=== PATIENT | male | born 2005 | race Caucasian/White ===

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

== ENCOUNTER 2024-02-14 09:27 | Emergency (ER) | payer BC, SELFPAY ==
[2024-02-14 09:38] VITALS: BP 103/59; PULSE 80; RESP 18; TEMP 37.1; O2SAT 100
--- NOTE | 2024-02-14 10:20 | ED.EYEPROB ---
HPI - Eye Problem General Chief complaint: Eye Problems Stated complaint: eyes Time Seen by Provider: 02/14/24 09:57 Source: patient, RN notes reviewed and old records reviewed Mode of arrival: ambulatory Limitations: no limitations History of Present Illness HPI Narrative: 18-year-old male to Express Care for complaint of itchy, swollen right eyelid that was present upon awakening today. Patient endorses that left eyelid presented this way yesterday and resolved by bedtime. Patient reports that he has been outside a lot over the past week camping, fishing. Patient states he has never had a reaction to poison jamal, poison sumac, poison oak. Patient denies visual changes, recent illness, rash, exposure to new environmental irritants. Related Data Allergies Allergy/AdvReac Type Severity Reaction Status Date / Time No Known Allergies Allergy Unknown Verified 02/14/24 09:45 Review of Systems Review of Systems: All systems reviewed & are unremarkable except as noted in HPI and below Constitutional: Constitutional: Reports no additional constitutional complaints Eyes: Eyes: Reports as per HPI, Denies change in vision, Denies eye discharge, Reports irritation ( Right upper eyelid), Denies eye pain and Denies photophobia ENT: Reports system reviewed and no additional complaints, except as documented Cardiovascular: Cardiovascular: Reports no additional cardiovascular complaints, Denies chest pain and Denies dyspnea Respiratory: Respiratory: Reports no additional respiratory complaints, Denies cough and Denies dyspnea Musculoskeletal: Musculoskeletal: Reports no additional musculoskeletal complaints Neurologic: Reports system reviewed and no additional complaints, except as documented Psychiatric: Psychiatric: Reports no additional psychiatric complaints PMFSH Past Medical History Medical History Left wrist fracture Surgical History Surgical History No pertinent past surgical history Family History Family History Mother No pertinent past medical history Social History Social History Smoking status: Current every day smoker Alcohol intake: never Substance use: current Substance use type: marijuana Living arrangements: with family Gender identity (if verbalized by the patient): Male Comments At the time of my signature, I reviewed and agree with the nursing past medical, surgical, social, and family history. There is no relevant family history pertinent to the patient complaint. Exam Const: General: cooperative, healthy appearing, comfortable, no acute distress, alert and well nourished Nutritional Appearance: well nourished Orientation/consciousness: patient oriented x3 Limitations: no limitations HENMT: Head: normal to inspection Ears: external ears normal Face/Nose/Sinus: Normal external nose present, Normal nares present, normal facial exam, No erythema and No edema Face and sinus: normal facial exam, no erythema and no edema Mouth: Yes Normal oral and palatal mucosa present Eyes: Visual Hernandez: normal visual hernandez by confrontation Alignment and Position: alignment normal and position normal Eyelids: eyelid abnormality left upper eyelid erythema, swelling and tenderness Conjunctivae: conjunctival abnormality bilateral conjunctival injection diffuse; without discharge Sclera: sclerae normal Pupils: Equal, round and reactive pupils present Neck: Neck: normal visual inspection, full ROM and no meningeal signs Lymphatic: no lymphadenopathy noted and no lymphedema noted Chest: Chest palpation & inspection: normal inspection of the chest Resp: Effort & Inspection: normal respiratory effort and able to speak in complete sentences Auscultation: clear to
== END 2024-02-14 10:35 | disposition home or self-care (01) ==
PROVIDERS: Emergency Provider Nurse Practitioner Family; PCP Physician Assistant
DX: L03.213 Periorbital cellulitis (principal); F17.200 Nicotine dependence, unspecified, uncomplicated; F12.90 Cannabis use, unspecified, uncomplicated
CPT/HCPCS: 99213; G0463

== ENCOUNTER 2024-08-25 12:35 | Emergency (ER) | payer BC, SELFPAY ==
[2024-08-25 12:40] VITALS: BP 116/60; PULSE 88; RESP 16; TEMP 37; O2SAT 100
--- NOTE | 2024-08-25 13:07 | ED_ITS ---
HPI - URI/Sore Throat General Chief Complaint: Upper Respiratory Infection Stated Complaint: Sore Throat/Cough History of Present Illness HPI Narrative: Patient presents with a cough and sore throat for the past 3 days. No shortness of breath no chest pain no fever no body aches. Patient has not taking thing [id number] for his symptoms. Related Data Allergies Allergy/AdvReac Type Severity Reaction Status Date / Time No Known Allergies Allergy Unknown Verified 02/14/24 09:45 Review of Systems Review of Systems: CONSTITUTIONAL: Denies chills, or sweats. Reports fever and generalized body aches EYES: Denies visual changes, redness, or discharge. ENT: Denies otalgia. Reports nasal congestion runny nose and sore throat CARDIOVASCULAR: Denies chest pain, palpitations, or edema. RESPIRATORY: Denies dyspnea. Reports occasional cough GASTROINTESTINAL: Denies abdominal pain, nausea, vomiting, or diarrhea. GENITOURINARY: Denies dysuria or hematuria. SKIN: Denies rash or itching. MUSCULOSKELETAL: Denies back pain, joint pain, or myalgia. Reports generalized body aches NEUROLOGIC: Denies headache, numbness, or weakness. PSYCHIATRIC: Denies anxiety or depression. [facility] Past Medical History Medical History Left wrist fracture Surgical History Surgical History No pertinent past surgical history Family History Family History Mother No pertinent past medical history Social History Social History Smoking status: Current every day smoker Alcohol intake: never Substance use: current Substance use type: marijuana Living arrangements: with family Gender identity (if verbalized by the patient): Male Comments At time of signature, agree with nursing past medical, surgical, social and family history. There is no relevant family history pertinent to the presenting complaint Exam Narrative: The patient is a well-developed, well-nourished in no acute distress. SKIN: Skin is warm and dry without erythema, swelling or exudate. There is good turgor. No tenting. HEAD: Atraumatic. Normocephalic. No temporal or scalp tenderness. EYES: Moist and bright. Sclera and conjunctivae normal. No discharge. PERRLA. Extraocular motions intact. Gross visual acuity intact. EARS: Pinna is normal shape and contour. Clear external auditory canals. TM pearly hogan with good cone of light, no erythema or suppuration. Bilateral cerumen noted no gross hearing deficit. NOSE: pink, moist mucosa with good air movement. Clear rhinorrhea without nasal flaring. Septum midline. Mouth: moist mucous membranes. THROAT; mild erythema noted to posterior oropharynx with moderate postnasal drainage. Without exudate or ulceration.. Uvula midline. Normal movement of soft palate. NECK: Supple and nontender with full range of motion without discomfort. No meningeal signs. LUNGS: Equal and bilateral breath sounds without wheezes, rales or rhonchi. CHEST: The chest wall is without retractions or use of accessory muscles. HEART: Has a regular rate and rhythm without murmur, gallops, click or rub. ABDOMEN: Soft, nontender with positive active bowel sounds. No rebound tenderness. EXTREMITIES: Without cyanosis, clubbing or edema. Equal 2+ distal pulses and 2 second capillary refill noted. NEUROLOGIC: alert, active, . The patient moves all extremities with normal muscle strength. Normal muscle tone is noted. Normal coordination is noted. NO focal neurological findings noted. Course Course Level of Care: Express Care Visit Vital Signs Vital signs: Vital Signs Temperature 37.0 C 08/25/24 12:40 Pulse Rate 88 08/25/24 12:40 Respiratory Rate 16 08/25/24 12:40 Blood Pressure 116/60 08/25/24 12:40 Pulse Oximetry 100 08/25/24 12:40 Oxygen Delivery Room Air 08/25/24 12:40 Temperature 37.0 C 08/25/24 12:40 Pulse Rate 88 08/25/24 12:40 Respiratory Rate 16 08/25/24 12:40 Blood Pressure 116/60 08/25/24 12:40 Pulse Oximetry 100 08/25/24 12:40 Oxygen Delivery Room Air 08/25/24 12:40 Discharge Plan Discharge Clinical Impression: Pharyngitis Patient Disposition: Home, Self-Care Condition: Stable Instructions: Antibiotic Form, Cold Symptoms (ED) Additional Instructions: Bronchitis discharge bronchitis Increase fluids and rest 1. Bronchitis will generally resolve on it's own and may take a few weeks. Bronchitis is usually caused by a virus, but sometimes it may be bacterial. Antibiotics generally do not help bronchitis go away faster. Yellow or green mucous, does not always mean bacterial. If you are prescribed an antibiotic for your symptoms be sure to take the entire course of antibioitics. Take with food. It is also suggested to take with yogurt or a probiotic to decrease GI side effects. You may also be prescribed a steroid, if so, be sure to take entire course, first thing in the morning with food. 2. Rest and drink lots of fluids. Maintain a good diet, with foods rich in vitamins and minerals, and lots of fruits and vegetables. 3. Drinking hot tea, warm tea with honey, sucking on cough drops or hard candy, throat lozenges may help with sore throat. 4. OTC cough and cold medications are okay to take for your symptoms, including Mucinex expectorant. 5. If you have high BP, Coricidin HBP is behind the counter , you may ask your pharmacist for this. Otherwise, avoid medications that have a D at the end or a decongestant in them. These medications may increase your BP. 6. Breathing in warm, moist air, such as in the shower or a humidifier at your bedside or in your home. 7. Avoid smoking or being around those who smoke. 8. Protect yourself and others, cover your mouth when you cough and sneeze, and always wash your hands to prevent the spread of germs, if you are unable to, use hand school library media program director. . . Prescriptions: New albuterol sulfate 90 mcg/actuation HFA aerosol inhaler 2 puff inhalation QID PRN (Reason: shortness of breath or wheezing) Qty: 8.5 0RF azithromycin [Zithromax Z-Davie] 250 mg tablet See Rx Instructions .ROUTE .COMPLEX Qty: 6 0RF Rx Instructions: take 500 mg today (day 1), then 250 mg for 4 days (days 2-5) Zyrtec 10 mg capsule 10 mg PO DAILY 14 Days Qty: 14 0RF Follow-up/Referrals: Brandy,PREETHI Corral [Primary Care Provider] - Stand Alone Forms: Work/School Release IP
[2024-08-25 13:12] LABS: EDSTREPNEGPOS1 Negative (Negative)
== END 2024-08-25 13:16 | disposition home or self-care (01) ==
PROVIDERS: Emergency Provider Nurse Practitioner Family; PCP Physician Assistant
DX: J02.9 Acute pharyngitis, unspecified (principal); F17.200 Nicotine dependence, unspecified, uncomplicated; F12.90 Cannabis use, unspecified, uncomplicated
CPT/HCPCS: 87081; 87880; 99213; G0463

== ENCOUNTER 2024-12-05 15:32 | Emergency (ER) | payer BC, SELFPAY ==
--- NOTE | ~2024-12-05 | XR_ITS ---
XR chest 2V Ordering provider: Kota Felder MD History: 19 years Male with . Cough . Comparison: None. FINDINGS: MEDIASTINUM: The cardiac silhouette is not enlarged. LUNGS: No infiltrates, effusions or pneumothorax. OTHER: No free air under the diaphragm. IMPRESSION: No acute cardiopulmonary pathology. Reviewed, dictated and finalized at location A. Y OPERATOR
[2024-12-05 15:37] VITALS: BP 126/74; PULSE 101; RESP 18; TEMP 36.6; O2SAT 100
[2024-12-05 16:30] VITALS: PULSE 84; RESP 16
[2024-12-05] MEDS: IPRATROPIUM 0.5 MG/ALBUTEROL SULFATE 2.5 MG AMPUL.NEB 3 ML INHALATION (16:30)
[2024-12-05 16:43] VITALS: PULSE 84; RESP 16
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
--- OUTSIDE RECORDS SUMMARY | 2024-12-05 17:12 | XMS_ITS | Clinical Summary ---
Author Organization [facility] Address [address] [place] [address] Phone Care Team Providers Care Business Analytics Specialist Name Role Phone Esau Nava Primary Care Provider Allergies No known active allergies Medications No known medications Social History Tobacco Use Types Packs/Day Years Used Date Smoking Tobacco: Never Smokeless Tobacco: Never Tobacco Cessation:Counseling Given: Not Answered Alcohol Use Standard Drinks/Week Comments Never 0 (1 standard drink = 0.6 oz pur e alcohol) Sexually Active Control Partners Comments Never Sex and Gender Information Value Date Recorded Sex Assigned at Not on file Legal Sex Male 9:05 PM CDT Gender Identity Not on file Sexual Orientation Not on file Last Filed Vital Signs Vital Sign Reading Time Taken Comments Blood Pressure 122/54 06/30/2024 8:01 PM CDT Pulse 74 06/30/2024 8:01 PM CDT Temperature 37.2 C (98.9 F) 06/30/2024 8:01 PM CDT Respiratory Rate 18 06/30/2024 8:01 PM CDT Oxygen Saturation 99% 06/30/2024 8:01 PM CDT Inhaled Oxygen Concentration - - Weight 54.4 kg (120 lb) 06/30/2024 8:01 PM CDT Height 172.7 cm (5' 8 ) 06/30/2024 8:01 PM CDT Body Mass Index 18.25 06/30/2024 8:01 PM CDT Plan of Treatment Health Maintenance Due Date Last Done Comments Hepatitis C Virus (HCV) Screening 2004 Human Papillomavirus (HPV) Immunization (1 - Male 3-dose series) 2019 Meningococcal B Immunization (1 of 2 - Standard) 2020 Hepatitis B Immunization (1 of 3 - 19+ 3-dose series) 2023 Influenza Immunization (#1) 2024 SARS-COV-2 Immunization (1 - 2023- season) 2024 Respiratory Syncytial Virus (RSV) Immunization (Adult) (1 - 1-dose 75+ series) 2079 Meningococcal Immunization (ACWY) Aged Out 016 No longer eligible based on patient's age to complete this topic TdaP Immunization Completed 07/06/2017 Pneumococcal Immunization Combined Aged Out No longer eligible based on patient's age to complete this topic Rotavirus Immunization Aged Out No lo nger eligible based on patient's age to complete this topic Care Teams Business Analytics Specialist Relationship Specialty Start Date End Date Esau Nava PAC [address] [place] [address] PCP - General Physician Manager Landscape 06/30/24
--- OUTSIDE RECORDS SUMMARY | 2024-12-05 17:44 | XMS_ITS | Clinical Summary ---
Author Organization [facility] Address [address] [place] [address] Phone Care Team Providers Care Offc Spec Name Role Phone Esau Nava Primary Care Provider [phone] Allergies No known active allergies Medications No [...] age to complete this topic Care Teams Offc Spec Relationship Specialty Start Date End Date Esau Nava PAC [address] [place] [address] PCP - General Physician Dip Tanker 06/30/24
--- NOTE | 2024-12-05 18:56 | ED_ITS ---
HPI - General Adult General Chief complaint: Upper Respiratory Infection Stated complaint: Cough,congestion, Shortness of breath Time Seen by Provider: 12/05/24 15:57 History of Present Illness HPI narrative: After patient is a 19-year-old male who presents ER with shortness of breath and cough. He has been symptomatic with cough over last week and half. He is exposed to COVID positive family. No chest pain. Has been using inhaler with only mild improvement. Frequent coughing. Related Data Allergies Allergy/AdvReac Type Severity Reaction Status Date / Time No Known Allergies Allergy Unknown Verified 12/05/24 15:34 Review of Systems Review of Systems: All systems reviewed & are unremarkable except as noted in HPI and below Constitutional: Constitutional: Reports no additional constitutional complaints ENT: Reports system reviewed and no additional complaints, except as documented Cardiovascular: Cardiovascular: Reports no additional cardiovascular complaints Respiratory: Respiratory: Reports no additional respiratory complaints PMFSH Past Medical History Medical History Left wrist fracture Surgical History Surgical History No pertinent past surgical history Family History Family History Mother No pertinent past medical history Social History Social History Smoking status: Current every day smoker Alcohol intake: never Substance use: current Substance use type: marijuana Living arrangements: with family Gender identity (if verbalized by the patient): Male Exam Narrative: GENERAL: Well-appearing, well-nourished, and in no acute distress. HEAD: Normocephalic, atraumatic. ENT: Mucous membranes moist. CHEST: Diffuse expiratory wheezing right worse than left. No respiratory distress. HEART: Regular rate and rhythm. Normal peripheral pulses. ABDOMEN: Soft, nontender, nondistended. EXTREMITIES: Normal range of motion. No edema. NEURO: Alert and oriented x3. PSYCH: Normal mood and affect. Course Course Emergency Course: Wheezing nearly resolved patient no longer coughing. Appropriate for discharge with prednisone. He has 140 puffs left in his inhaler. Vital Signs Vital signs: Vital Signs Temperature 97.8 F 12/05/24 15:37 Pulse Rate 101 H 12/05/24 15:37 Respiratory Rate 18 12/05/24 15:37 Blood Pressure 126/74 12/05/24 15:37 Pulse Oximetry 100 12/05/24 15:37 Oxygen Delivery Room Air 12/05/24 15:37 Temperature 99 F 12/05/24 19:23 Pulse Rate 95 12/05/24 19:23 Respiratory Rate 18 12/05/24 19:23 Blood Pressure 103/63 12/05/24 19:23 Pulse Oximetry 98 12/05/24 19:23 Oxygen Delivery Room Air 12/05/24 15:44 Medical Decision Making Vital Signs Vital Signs: Vital Signs Temperature 97.8 F 12/05/24 15:37 Pulse Rate 101 H 12/05/24 15:37 Respiratory Rate 18 12/05/24 15:37 Blood Pressure 126/74 12/05/24 15:37 Pulse Oximetry 100 12/05/24 15:37 Oxygen Delivery Room Air 12/05/24 15:37 Temperature 99 F 12/05/24 19:23 Pulse Rate 95 12/05/24 19:23 Respiratory Rate 18 12/05/24 19:23 Blood Pressure 103/63 12/05/24 19:23 Pulse Oximetry 98 12/05/24 19:23 Oxygen Delivery Room Air 12/05/24 15:44 Imaging Data Radiologist's impression: ITS Impressions Chest X-Ray 12/05/24 16:57 IMPRESSION: No acute cardiopulmonary pathology. Discharge Plan Discharge Clinical Impression: Bronchitis Patient Disposition: Home, Self-Care Condition: Stable Instructions: Acute Bronchitis (ED) Additional Instructions: Please return to the emergency department if you develop severe and persistent chest pain, difficulty breathing, dizziness, leg swelling or if you are coughing up blood as these can be signs of a medical emergency. Please call your doctor for a follow up appointment to determine the need for further testing. Patient Language: Icelandic Prescriptions: New prednisone 50 mg tablet 50 mg PO DAILY Qty: 7 0RF No Action albuterol sulfate 90 mcg/actuation HFA aerosol inhaler 2 puff inhalation QID PRN (Reason: shortness of breath or wheezing) Qty: 8.5 0RF azithromycin [Zithromax Z-Davie] 250 mg tablet See Rx Instructions .ROUTE .COMPLEX Qty: 6 0RF Rx Instructions: take 500 mg today (day 1), then 250 mg for 4 days (days 2-5) Zyrtec 10 mg capsule 10 mg PO DAILY 14 Days Qty: 14 0RF Follow-up/Referrals: Brandy,PREETHI Corral [Primary Care Provider] - 1 Week Stand Alone Forms: Work/School Release IP
[2024-12-05 19:23] VITALS: BP 103/63; PULSE 95; RESP 18; TEMP 37.2; O2SAT 98
== END 2024-12-05 19:23 | disposition home or self-care (01) ==
PROVIDERS: Emergency Provider Emergency Medicine; PCP Physician Assistant
DX: J40 Bronchitis, not specified as acute or chronic (principal); F17.200 Nicotine dependence, unspecified, uncomplicated
CPT/HCPCS: 71046; 94640; 99283

== ENCOUNTER 2025-05-20 14:58 | Emergency (ER) | payer SELFPAY ==
--- NOTE | 2025-05-20 15:00 | ED.WOUNDLAC ---
HPI - Wound/Laceration General Chief Complaint: Wound/Laceration Stated Complaint: Cut Left Hand Time Seen by Provider: 05/20/25 15:00 Source: patient Mode of arrival: ambulatory Limitations: no limitations History of Present Illness HPI narrative: Ricci is a 19 year old male patient presenting to the clinic today with c/o a cut to his left hand. He reports he was using a brand new razor blade to cut off some tape off the table when he missed and accidentally cut his left hand. Bleeding is controlled. Tetanus up-to-date per patient. Related Data Home Medications ?Medication ?Instructions ?Recorded ?Confirmed ?Last Taken ?Type No Home Medications 05/20/25 05/20/25 Unknown History Allergies Allergy/AdvReac Type Severity Reaction Status Date / Time No Known Allergies Allergy Unknown Verified 05/20/25 15:17 Review of Systems Review of Systems: Pertinent positives per HPI. Patient denies any fever, chills, rash, headache, visual changes, dizziness, cough, runny nose, sore throat, shortness of breath, chest pain, palpitations, nausea, vomiting, diarrhea, constipation, abdominal pain, or any urinary issues. PMFSH Past Medical History Medical History Left wrist fracture Surgical History Surgical History No pertinent past surgical history Family History Family History Mother No pertinent past medical history Social History Social History Smoking status: Current every day smoker Alcohol intake: never Substance use: current Substance use type: marijuana Living arrangements: with family Gender identity (if verbalized by the patient): Male Comments At the time of my signature, I reviewed and agree with the nursing past medical, surgical, social, and family history. There is no relevant family history pertinent to the patient complaint. Exam Narrative: General: Well-developed, well nourished, in no apparent distress Head: Normocephalic, atraumatic. Cardio: Regular rate and rhythm, s1 and s2 normal, no murmur appreciated. Resp: Clear to auscultation bilaterally, no rhonchi, rales, wheezing or rubs. Integumentary: [place], warm, and dry, 1.5 cm vertical superficial laceration to the left hand-radial side palm Course Course Emergency Course: Portions of this record may have been created with voice recognition software. Level of Care: Express Care Visit Vital Signs Vital signs: Vital Signs Temperature 36.9 C 05/20/25 15:06 Pulse Rate 73 05/20/25 15:06 Respiratory Rate 14 05/20/25 15:06 Blood Pressure 129/66 05/20/25 15:06 Pulse Oximetry 100 05/20/25 15:06 Oxygen Delivery Room Air 05/20/25 15:06 Temperature 36.9 C 05/20/25 15:06 Pulse Rate 75 05/20/25 15:41 Respiratory Rate 20 05/20/25 15:41 Blood Pressure 108/77 05/20/25 15:41 Pulse Oximetry 96 05/20/25 15:41 Oxygen Delivery Room Air 05/20/25 15:41 Vital signs reviewed Procedures Laceration Laceration 1: Date: 05/20/25 Site: hand Side (If applicable): left Size (cm): 1.5 Description: linear Depth: simple, single layer Local Anesthetic: lidocaine 1% Amount of anesthesia used (mL): 1 Pre-repair: wound explored and irrigated ====== Skin Level ====== Skin layer closed with: nylon Size (cm): 5-0 Number of sutures: 4 Technique: simple, interrupted ====== Subcutaneous Layer ====== ====== Muscle Layer ====== ====== Tendon Layer ====== Dressing: Verbal consent obtained for laceration repair. Risk and benefits explained and patient voiced understanding. Area was cleansed with antiseptic wound wash and a 27 gauge needle was then used to instill (1) ml of 1% lidocaine without epi into the wound edges. Area was prepped and draped using sterile technique. A 5-0 suture on a p needle was used to place (4) interrupted sutures bringing the wound edges together- well approximated. Patient tolerated procedure well. Sterile dressing applied. MDM - Wound/Laceration MDM Narrative Medical decision making narrative: At the time of visit patient is resting comfortably on the exam table. Patient appears to be nontoxic. C/o a cut to his left hand. He reports he was using a brand new razor blade to cut off some tape off the table when he missed and accidentally cut his left hand. Bleeding is controlled. Tetanus up-to-date per patient. On exam patient has a 1.5 cm superficial laceration to the left radial side palm aspect of the hand Procedure: Laceration repair was performed-4 interrupted sutures were placed bringing wound edges well approximate -5 0 suture was used. Patient tolerated well. Sensation, circulation, and motion within normal limits after suture repair. Juvenile bone ointment and Band-Aid was applied Plan: Patient laceration to the left hand with laceration repair in the clinic today. Sterile dressing was applied. Bleeding is controlled. Supportive measures were discussed with the patient and they voiced understanding discharge instructions and agrees to treatment plan. Return precautions reviewed Differential Diagnosis Differential diagnosis: Likely laceration, abscess, abrasion and avulsion of skin Discharge Plan Discharge Clinical Impression: Laceration of hand Qualifiers: Encounter type: initial encounter Foreign body presence: without foreign body Laterality: left Qualified Code(s): S61.412A - Laceration without foreign body of left hand, initial encounter Patient Disposition: Home Condition: Stable Instructions: Antibiotic Form, Care For Your Stitches (ED), Laceration (ED) Additional Instructions: Leave bandage on for 24 hours then may remove and apply band aide covering as needed. Keep wound clean and dry Skin sutures out in 7 days. Watch for signs and symptoms of infection- redness, streaking, swelling, purulent discharge, or increase in pain. Follow up with your PCP for suture removal or return to the Express care. Patient Language: [place] Islander Prescriptions: No Action No Home Medications Follow-up/Referrals: UNKNOWN,DOCTOR [Non-Staff] - Stand Alone Forms: Work/School Release IP Time of Disposition: 15:13 Quality NIHSS Nursing Documentation ED NIHSS nursing documentation: reviewed/agree
[2025-05-20 15:06] VITALS: BP 129/66; PULSE 73; RESP 14; TEMP 36.9; O2SAT 100
[2025-05-20] MEDS: LIDOCAINE 1% LOCAL INJ 2 ML AMPUL INFILTRATE (15:19)
[2025-05-20 15:25] VITALS: BP 96/61; PULSE 78; RESP 20; O2SAT 94
[2025-05-20 15:41] VITALS: BP 108/77; PULSE 75; RESP 20; O2SAT 96
== END 2025-05-20 15:41 | disposition home or self-care (01) ==
PROVIDERS: Emergency Provider Nurse Practitioner Family
DX: S61.412A Laceration without foreign body of left hand, initial encounter (principal); W26.8XXA Contact with other sharp object(s), not elsewhere classified, initial encounter; F17.200 Nicotine dependence, unspecified, uncomplicated; F12.90 Cannabis use, unspecified, uncomplicated
CPT/HCPCS: 12001; 99212; G0463; J2003